=== PATIENT | male | born 1985 | race Caucasian/White ===

== ENCOUNTER 2018-12-05 22:17 | Emergency (ER) | payer SELFPAY ==
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
[2018-12-05 23:05] VITALS: BP 131/91
== END 2018-12-05 22:55 | disposition home or self-care (01) ==
LOC: ED 22:17
DX: Z04.89 Encounter for examination and observation for other specified reasons (principal)
CPT/HCPCS: 99281